=== PATIENT | male | born 1965 | race Caucasian/White ===

== ENCOUNTER → 2020-07-01 09:38 | Outpatient (CLI) | payer MEDICAID, SELFPAY ==
--- NOTE | 2020-07-01 09:38 | CA_ITS ---
APPROVED REPORT EXAM: Comprehensive 2D, Doppler, and color-flow Echocardiogram Business Developer: Amanda Verdugo, RT(R) Ht: 5 ft 9 in Wt: 177lbs BSA: 1.96 BP: 162/102 mmHg Indications: murmur, ex smoker, HTN 2D Dimensions LVOT 2.34 cm (M/F) 1.5-2.5 M-Mode Dimensions RVDd 1.79 cm (0.9-2.6) LVDd 3.62 cm (3.5-5.7) LVDs 1.83 cm (3.5-5.7) IVSd 1.56 cm (0.6-1.1) PWd 0.89 cm (0.6-1.1) EF (Teich) 81.70% FS 49.40% EDV (Teich) 55.20 mL ESV (Teich) 10.10 mL LV Diastology E/A Ratio 0.94 Mitral Valve MV A Velocity 101.00 (40-130 cm/s) Left Ventricle Left atrium is moderately enlarged, left ventricle is normal size, mild concentric left ventricular hypertrophy, visually estimated ejection fraction 55% with no regional wall motion abnormality. Diastolic parameters are inconclusive. Right Ventricle Right atrium and right ventricular normal size and contractility. Aortic Valve Aortic valve is minimally thickened and fibrosed. There is no aortic stenosis or aortic insufficiency. 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 Tricuspid Valve Tricuspid valve is grossly normal, there is mild tricuspid regurgitation, tricuspid regurgitation jet velocity is inadequate for calculation of the right ventricular systolic pressure. Pulmonic Valve Pulmonic valve is poorly visualized. Great Vessels Aortic root is normal size. Pericardium No significant pericardial effusion noted. Conclusion 1. Moderately enlarged left atrium, normal left ventricular size, mild concentric left ventricular hypertrophy, visually estimated ejection fraction 55% with no regional wall motion abnormality, diastolic parameters are inconclusive. 2. Abnormal mitral valve as described above, posterior mitral leaflet appears to be flail, this is associated with severe mitral regurgitation. 3. Mild tricuspid regurgitation. 4. Transesophageal echocardiogram is recommended for further evaluation. Electronically signed by : Neftali Fuller, 07/01/2020 16:31:50
== END ==
PROVIDERS: PCP Family Medicine; Visit Provider Family Medicine
DX: R01.1 Cardiac murmur, unspecified (principal)
CPT/HCPCS: 93306

== ENCOUNTER 2020-07-25 10:16 | Day surgery (SDC) | payer MEDICAID, SELFPAY ==
[2020-07-25 10:21] VITALS: BMI 26.2
[2020-07-25 10:44] VITALS: BP 134/90; PULSE 75; RESP 16; O2SAT 99
--- NOTE | 2020-07-25 10:54 | CA_ITS ---
APPROVED REPORT EXAM: Comprehensive 2D, Doppler, and color-flow Echocardiogram Clinical Services Manager: Amanda Kartik RT(R) Ht: 5 ft 9 in Wt: 178lbs BSA: 1.97 BP: 118/77 mmHg Procedure After obtaining informed consent, patient underwent transesophageal echo in the [facility]. Type of Sedation : Conscious Sedation Sedation was administered by Harris ReynagaRJamisonNNatalie Transesophageal probe was inserted and advanced into esophagus without difficulty by Dr. Francois Capone. The BLAISE was performed without complications. Throughout the procedure, the blood pressure, pulse oximetry, cardiac rhythm, and rate were monitored. The patient tolerated the procedure without adverse effects. Recovery from conscious sedation was uneventful and vital signs were stable. Left Ventricle Left ventricle is normal size, visually estimated ejection fraction 50% in the obtained views with no regional wall motion abnormality. Right Ventricle Right ventricle is normal size and contractility. Atria Left atrium is moderately enlarged. Left atrial appendage is free of thrombus, there is good appendage flow by spectral Doppler. Right atrium is normal size. Intra-atrial septum is intact, there is patent foramina ovale with right to left shunt identified agitated saline contrast study. Aortic Valve Aortic valve is minimally thickened and fibrosed, there is no aortic stenosis or aortic insufficiency. Mitral Valve Mitral valve is myxomatous, and prolapse of the posterior mitral leaflet which is almost flail, there is failure to coaptation of the mitral valve leaflet, there is severe mitral regurgitation. Tricuspid Valve Tricuspid valve is grossly normal. There is mild tricuspid regurgitation. Pulmonic Valve Pulmonic valve is grossly normal. Great Vessels Aortic root is normal size. Ascending, arch and descending thoracic aorta is normal. Pericardium No significant pericardial effusion noted. Conclusion 1. Abnormal mitral valve as described above with severe mitral regurgitation. 2. Normal left ventricular size, ejection fraction 50% with no regional wall motion abnormality. 3. Patent foramen ovale with [id number] shunt. 4. No significant pericardial effusion noted. Electronically signed by : Neftali Fuller, 07/25/2020 14:04:21
[2020-07-25 11:02] LABS: Basophils % 0.4 % (0.1-2.0); Eosinophils # 0.3 K/mm3 (0.0-0.4); Eosinophils % 3.4 % (0.1-12.0); Hematocrit 50.2 % (42.0-52.0); Hemoglobin 16.8 g/dL (14.1-18.0); Lymphocytes # 1.6 K/mm3 (0.7-4.5); Lymphocytes % 21.7 % (10-50); Mean Corpuscular HGB Conc 33.5 g/dL (31.8-35.4); Mean Corpuscular Hemoglobin 29.6 pg (27.0-31.2); Mean Corpuscular Volume 88.5 fl (80-94); Mean Platelet Volume 8.1 fl (7.4-10.4); Monocytes # 0.3 K/mm3 (0.1-1.0); Monocytes % 4.1 % (1.7-9.3); Neutrophils # 5.3 K/mm3 (1.8-7.8); Neutrophils % 70.4 % (37.0-80.0); Platelet Count 204 K/mm3 (142-424); Red Blood Count 5.68 M/mm3 (4.60-6.20); Red Cell Distribution Width 14.1 % (11.5-17.5); White Blood Count 7.5 K/mm3 (4.8-10.8)
[2020-07-25 11:07] LABS: Chloride 105 mmol/L (98-107); Sodium 141 mmol/L (136-145)
[2020-07-25 11:08] LABS: Potassium 3.9 mmoL/L (3.5-5.1)
[2020-07-25 11:10] LABS: Blood Urea Nitrogen 14 mg/dl (9-20); Creatinine Clearance Estimated 94 mL/min (50-200); Estimated Glomerular Filt Rate 77 ml/min (>60); GFR (African American) 94 ML/MIN (>60)
[2020-07-25 11:11] LABS: Anion Gap 14.9 mEq/L (5-15); Calcium 9.4 mg/dl (8.4-10.2); Carbon Dioxide 25 mmol/L (22.0-30.0); Glucose 103 mg/dl (74-100)
[2020-07-25 11:28] LABS: Coronavirus 19 IgG Antibody Negative (Negative); Coronavirus 19 IgM Antibody Negative (Negative)
[2020-07-25 11:33] VITALS: BP 103/71; PULSE 87; RESP 16; O2SAT 90
[2020-07-25 11:50] VITALS: BP 110/66; PULSE 83; RESP 16; O2SAT 95
[2020-07-25 12:00] VITALS: BP 110/71; PULSE 73; RESP 16; O2SAT 95
[2020-07-25 12:09] VITALS: BP 106/70; PULSE 70; RESP 16; O2SAT 97
[2020-07-25 12:20] VITALS: BP 106/70; PULSE 70; RESP 16; O2SAT 96
--- NOTE | 2020-07-25 12:21 | P.PN_ITS ---
[facility] Anesthesia Checklist - Patient Identification Patient Identification: Arm Band - Structural Data Admitted From: Home Planned Operative Procedure/s: BLAISE Consent for Planned Operative Procedure(s) Verified: Yes Verified Documents: Surgical Consent, History and Physical - NPO Status Verified Time NPO: 00:00 - Additional verifications Anesthesia Reactions: No - Airway Assessment C-Spine Mobility Assessed: Yes (mp2) TMJ Mobility Assessed: Yes Dentition: Edentulous - Neurological Assessment Level of Consciousness: Awake, Alert - Anesthesia Plan Anesthesia Risk discussed: Yes Anesthesia Plan: Verified ASA Class: III Anesthesia Type: [facility] History I have reviewed the patient's past medical history: Yes Medical History: Reports:: Anxiety, Depression, Heart Murmur, Hypertension, Valvular Heart Disease *Have you ever received a pneumonia vaccine?: No *Have you received a flu vaccine this season?: No Anesthesia experience/problems:: nac Other Surgeries: Yes: No Previous Surgery - *Social History Last grade of school completed: 11th or 12th Smoking Status: Former smoker Alcohol Intake: never Alcohol Intake Frequency:: holidays/special occasions only Substance Use Type: denies use *Occupational Status:: employed *Travel in the last 8 weeks: None - Psychiatric History Pschychiatric History:: Reports:: Anxiety, Depression Family Hx:: Heart Attack, Coronary Artery Disease
== END 2020-07-25 12:23 | disposition home or self-care (01) ==
LOC: CATHLAB 10:18
PROVIDERS: PCP Family Medicine; Visit Provider Internal Medicine Cardiovascular Disease
DX: I34.1 Nonrheumatic mitral (valve) prolapse (principal); R00.2 Palpitations; R01.1 Cardiac murmur, unspecified; R06.00 Dyspnea, unspecified; R40.0 Somnolence; R93.1 Abnormal findings on diagnostic imaging of heart and coronary circulation; R94.31 Abnormal electrocardiogram [ECG] [EKG]; Z82.49 Family history of ischemic heart disease and other diseases of the circulatory system; Z87.891 Personal history of nicotine dependence; I20.8 Other forms of angina pectoris; I10 Essential (primary) hypertension
CPT/HCPCS: 80048; 85025; 86328; 93312

== ENCOUNTER 2020-07-28 08:44 | Day surgery (SDC) | payer MEDICAID, SELFPAY ==
[2020-07-28] VITALS (11 sets, daily range): BP systolic 101–135; BP diastolic 50–83; PULSE 52–74; RESP 14–16; TEMP 36.6; O2SAT 91–99; BMI 26.2
--- NOTE | 2020-07-28 09:00 | IR_ITS ---
APPROVED REPORT Patient Location: [facility] Justice: HAM Ulrich RT (R) PROCEDURES Right heart catheterization Left heart catheterization Left ventriculogram Selective coronary angiogram INDICATION Preoperative evaluation for mitral valve surgery, Suspected pulmonary hypertension Informed consent was obtained prior to the procedure. COMPLICATIONS None Estimated Blood Loss: less than 10ml. TECHNIQUE One percent lidocaine was used to anesthetize the right anterior aspect of the right wrist. The right radial artery was accessed via the Seldinger technique and a 6 Italian hydrophilic sheath was placed in the right radial artery. Following this one percent lidocaine was used to anesthetize the right anterior aspect of the right neck. The right internal jugular vein was accessed via the Seldinger technique and a 7 Italian sheath was placed in the right internal jugular vein. Following this an arterial cocktail was administered using 5000U heparin, 2.5 mg verapamil, 1mg Lidocaine and 800mcg nitroglycerin into the right radial sheath. A trap catheter was used to perform left heart catheterization left ventriculogram and selective coronary angiography while a Lynden-Albert catheter was used to perform right heart catheterization. Saturations were obtained in the pulmonary artery and right atrium. At the end of the procedure the arterial sheath was removed good hemostasis was achieved using Traclet band. Patient was transferred to the postop holding area in stable condition for venous sheath removal. ANGIOGRAPHIC RESULTS The left main artery Normal The left anterior descending artery Normal The circumflex artery Normal The right coronary artery Dominant normal The RODRIGUEZ ventriculogram reveals Normal 65% The left ventricular end-diastolic pressure 5 mmHg Right atrial pressure 2 mmHg Right ventricular pressure 15/5 mmHg Pulmonary occlusion pressure 3 mmHg Right atrial saturation and pulmonary artery saturation 81% IMPRESSION Normal coronary arteries Normal ejection fraction Normal left ventricular end-diastolic pressure Low intra-cardiopulmonary filling pressures PLAN 1. Will defer treatment plan to primary cardiology treatment team Electronically signed by : Dar Grissom, 07/28/2020 11:37:52
[2020-07-28 09:18] LABS: Basophils % 0.5 % (0.1-2.0); Eosinophils # 0.1 K/mm3 (0.0-0.4); Hematocrit 49.5 % (42.0-52.0); Hemoglobin 16.4 g/dL (14.1-18.0); Lymphocytes # 1.3 K/mm3 (0.7-4.5); Lymphocytes % 19.2 % (10-50); Mean Corpuscular HGB Conc 33.2 g/dL (31.8-35.4); Mean Corpuscular Hemoglobin 30.1 pg (27.0-31.2); Mean Corpuscular Volume 90.6 fl (80-94); Mean Platelet Volume 7.7 fl (7.4-10.4); Monocytes # 0.3 K/mm3 (0.1-1.0); Monocytes % 4.5 % (1.7-9.3); Neutrophils # 5.1 K/mm3 (1.8-7.8); Neutrophils % 73.6 % (37.0-80.0); Platelet Count 232 K/mm3 (142-424); Red Blood Count 5.46 M/mm3 (4.60-6.20); Red Cell Distribution Width 13.9 % (11.5-17.5); White Blood Count 6.9 K/mm3 (4.8-10.8)
[2020-07-28 09:24] LABS: Anion Gap 12.7 mEq/L (5-15); Blood Urea Nitrogen 13 mg/dl (9-20); Calcium 9.5 mg/dl (8.4-10.2); Carbon Dioxide 28 mmol/L (22.0-30.0); Chloride 103 mmol/L (98-107); Creatinine Clearance Estimated 86 mL/min (50-200); Estimated Glomerular Filt Rate 69 ml/min (>60); GFR (African American) 84 ML/MIN (>60); Glucose 105 mg/dl (74-100); Potassium 3.7 mmoL/L (3.5-5.1); Sodium 140 mmol/L (136-145)
[2020-07-28 09:52] LABS: Coronavirus 19 IgG Antibody Negative (Negative); Coronavirus 19 IgM Antibody Negative (Negative)
[2020-07-28 12:30] LABS: CATHL Arterial O2 SAT 81.8 % (90-100); CATHL Venous O2 SAT 81.9 % (75-80)
== END 2020-07-28 14:16 | disposition home or self-care (01) ==
LOC: CATHLAB 08:45
PROVIDERS: Internal Medicine; PCP Family Medicine; Visit Provider Internal Medicine Cardiovascular Disease
DX: I20.8 Other forms of angina pectoris (principal); I34.1 Nonrheumatic mitral (valve) prolapse; R00.2 Palpitations; R01.1 Cardiac murmur, unspecified; R06.00 Dyspnea, unspecified; R40.0 Somnolence; R93.1 Abnormal findings on diagnostic imaging of heart and coronary circulation; R94.31 Abnormal electrocardiogram [ECG] [EKG]; Z82.49 Family history of ischemic heart disease and other diseases of the circulatory system; I27.9 Pulmonary heart disease, unspecified
CPT/HCPCS: 36415; 80048; 82810; 85025; 86328; 93460; 99152; C1725; C1769; C1894; J1644; Q9967

== ENCOUNTER → 2022-12-23 15:14 | Outpatient (CLI) | payer OTHER, SELFPAY ==
[2022-12-23 15:17] LABS: Barbiturates Screen,Urine Negative ng/ml (<200)
[2022-12-23 15:19] LABS: Benzodiazepines Screen,Urine Positive ng/ml (<200)
[2022-12-23 15:20] LABS: Cannabinoid Screen,Urine Positive ng/ml (<50); Cocaine Screen,Urine Negative ng/ml (<300)
[2022-12-23 15:21] LABS: Methadone Screen,Urine Negative ng/ml (<300); Opiate Screen,Urine Negative ng/ml (<300)
[2022-12-23 15:22] LABS: Phencyclidine Screen,Urine Negative ng/ml (<25)
[2022-12-23 15:30] LABS: Amphetamine/Metha Screen,Urine Positive ng/ml (<1000)
== END ==
PROVIDERS: PCP Nurse Practitioner Family; Visit Provider Nurse Practitioner Family
DX: Z79.899 Other long term (current) drug therapy (principal)
CPT/HCPCS: 80305